=== PATIENT | female | born 1970 ===

== ENCOUNTER 2022-03-04 09:42 | Inpatient (IN) | payer MEDICARE ==
[2022-03-04] MEDS ORDERED: Magnesium 2 GM/50 ML BAG (IN WATER) ONE (09:45)
[2022-03-04] MEDS ORDERED: methylPREDNISolone Sod Succ/PF 125 MG/2 ML VIAL ONE (09:45)
[2022-03-04] MEDS ORDERED: Albuterol Sulfate 2.5 mg/3 ml Neb ONE (09:48)
[2022-03-04] MEDS ORDERED: Albuterol Sulfate 2.5 mg/0.5 ml Neb ONE (09:48)
[2022-03-04] MEDS ORDERED: Iopamidol-370 76% 500 ML 1 ML ONE (10:02)
[2022-03-04 10:08] LABS: Actual Bicarbonate (HCO3v) 20 mEq/L (22-28); Analyzer IN Cardio ER; Base Excess -8.3 mEq/L (-2.0 to +3.0); Calcium, Ionized (venous) 1.06 mmol/L (1.16-1.32); Chloride (VBG) 99 mmol/L (98-106); Hemoglobin (Hb) 10.9 g/dL (11.7-16.0); Potassium (VBG) 4.11 mmol/L (3.70-5.30); Sodium 130.6 mmol/L (133-146)
[2022-03-04 10:09] LABS: pH (venous) 7.21 (7.32-7.43)
[2022-03-04] MEDS ORDERED: Cefepime 2 GM VIAL ONE (10:14)
[2022-03-04] MEDS ORDERED: Vancomycin 1 GM/200 ML BAG ONE (10:14)
[2022-03-04 10:22] LABS: ALT (SGPT) 31 U/L (8-55); AST (SGOT) 48 U/L (5-34); Albumin 2.9 g/dL (3.5-5.0); Alkaline Phosphatase 164 U/L (40-110); Anion Gap 25 mmol/L (10-20); BUN (Urea Nitrogen) 33 mg/dL (9.8-20.1); Bilirubin, Total 0.7 mg/dL (0.2-1.2); Calc. Creatinine Clearance 0 mL/min (70-130); Calcium 7.5 mg/dL (7.8-10.44); Carbon Dioxide 13 mmol/L (22-29); Chloride 100 mmol/L (98-107); Estimated GFR 69; Globulin 3.9 g/dL (2.4-3.5); Glucose 250 mg/dL (70-105); Potassium 4.6 mmol/L (3.5-5.1); Protein, Total 6.8 g/dL (6.0-8.3); Sodium 133 mmol/L (136-145)
[2022-03-04 11:04] LABS: Acetaminophen Less than 10.0 mcg/mL (10.0-30.0); Alcohol Less than 10 mg/dL (Less than 10); Lipase 14 U/L (8-78); Salicylate Less than 8.0 mg/dL (15.0-30.0)
[2022-03-04] MEDS ORDERED: Promethazine HCl 12.5 MG SUPP ONE (11:23)
[2022-03-04 11:27] LABS: Phosphorus 6.3 mg/dL (2.3-4.7)
[2022-03-04 11:29] LABS: Magnesium 3.5 mg/dL (1.6-2.6)
[2022-03-04 11:30] LABS: Hemoglobin 10.1 g/dL (12.0-16.0); Mean Corpuscular HGB CONC 32.6 g/dL (32.0-36.0); Mean Corpuscular Hemoglobin 30.3 pg (27.0-31.0); Mean Corpuscular Volume 92.9 fL (78.0-98.0); Mean Platelet Volume 9.1 fL (7.4-10.4); Platelet Count 83 thou/uL (130-400); RBC Distribution Width 13.8 % (11.5-14.5); Red Blood Cell (RBC) Count 3.33 mill/uL (4.20-5.40); White Blood Cell (WBC) Count 51.1 thou/uL (4.8-10.8)
[2022-03-04 11:31] LABS: INR-International Normal Ratio 1.4; PTT 29.3 sec (22.9-36.1); Prothrombin Time 17.1 sec (12.0-14.7)
[2022-03-04 11:33] LABS: Band 34 % (5-11); Lymphocytes 2 % (21-51); MDiff Complete? YES; Monocytes 2 % (0-10); Neutrophil 62 % (42-75); Platelet Morphology Comment Appears Decreased; Polychromasia SLIGHT = 2-3 cells (100X) (0-2/hpf)
[2022-03-04] MEDS ORDERED: diphenhydrAMINE 50 MG/ML VIAL ONE (11:34)
[2022-03-04] MEDS ORDERED: HYDROmorphone 0.5 MG/0.5 ML SYRINGE ONE (11:34)
[2022-03-04] MEDS ORDERED: Promethazine HCl 12.5 MG in Sodium Chloride 0.9% 50 ML IVPB SCH (12:30)
[2022-03-04 12:40] LABS: SARS-CoV-2 NAA Rapid Test Not Detected (NotDetected)
[2022-03-04] MEDS ORDERED: Acetaminophen 325 MG TAB PO PRN (13:27)
[2022-03-04] MEDS ORDERED: Bisacodyl 5 MG TAB PO PRN (13:27)
[2022-03-04] MEDS ORDERED: Ondansetron PF 4 MG/2 ML Vial IVP PRN (13:27)
[2022-03-04] MEDS ORDERED: Senokot S 8.6-50 MG TAB PO PRN (13:27)
[2022-03-04] MEDS ORDERED: Bisacodyl 10 MG SUPP PR PRN (13:27)
[2022-03-04] MEDS ORDERED: Lactated Ringer's 1,000 ML IV SCH (13:30)
[2022-03-04] MEDS ORDERED: Cefepime 2 GM in Sodium Chloride 0.9% 100 ML IVPB SCH (14:00)
[2022-03-04 14:33] LABS: Hemoglobin A1c 5.5 % (4.0-6.0)
[2022-03-04 14:51] LABS: Lactic Acid 4.3 mmol/L (0.5-2.2)
[2022-03-04] MEDS ORDERED: Vancomycin 1 GM in Premix Bag 1 BAG IVPB SCH (15:00)
[2022-03-04] MEDS ORDERED: Enoxaparin Sodium 30 MG/0.3 ML SYRINGE SC SCH (16:15)
[2022-03-04 16:16] LABS: Actual Bicarbonate (HCO3v) 18 mEq/L (22-28); Base Excess -10.1 mEq/L (-2.0 to +3.0); Calcium, Ionized (venous) 0.99 mmol/L (1.16-1.32); Chloride (VBG) 104 mmol/L (98-106); Hemoglobin (Hb) 11.9 g/dL (11.7-16.0); Potassium (VBG) 4.86 mmol/L (3.70-5.30); Sodium 135.7 mmol/L (133-146)
[2022-03-04 16:20] LABS: pH (venous) 7.19 (7.32-7.43)
[2022-03-04] MEDS: Promethazine HCl 12.5 MG in Sodium Chloride 0.9% 50 ML IVPB PRN ×2 (16:33→22:24)
[2022-03-04] MEDS ORDERED: Sodium Bicarbonate 150 MEQ in Dextrose 5% in Water 1,000 ML IV SCH (17:15)
[2022-03-04] MEDS: METHadone HCl 10 MG TAB PO SCH (18:00)
[2022-03-04] MEDS ORDERED: NOREPINEPHRINE 8 MG/250 ML-D5W 250 ML IVPB SCH (18:45)
[2022-03-04] MEDS: Enoxaparin Sodium 30 MG/0.3 ML SYRINGE SC SCH (19:16)
[2022-03-04] MEDS ORDERED: Pantoprazole 40 MG VIAL IVP SCH (21:00)
[2022-03-04] MEDS ORDERED: Famotidine/PF 20 mg/2ml Vial SLOW IVP SCH (21:00)
[2022-03-04] MEDS: Cefepime 1 GM in Sodium Chloride 0.9% 100 ML IVPB SCH (22:24)
[2022-03-05] MEDS: METHadone HCl 10 MG TAB PO SCH ×2 (00:43→09:12)
[2022-03-05] MEDS: Promethazine HCl 12.5 MG in Sodium Chloride 0.9% 50 ML IVPB PRN ×3 (06:26→18:36)
[2022-03-05 06:43] LABS: Actual Bicarbonate (HCO3v) 27 mEq/L (22-28); Base Excess 3.7 mEq/L (-2.0 to +3.0); Calcium, Ionized (venous) 0.99 mmol/L (1.16-1.32); Chloride (VBG) 101 mmol/L (98-106); Hemoglobin (Hb) 10.8 g/dL (11.7-16.0); Potassium (VBG) 4.57 mmol/L (3.70-5.30); Sodium 135.4 mmol/L (133-146)
[2022-03-05 06:52] LABS: Reticulocyte Count 2.3 % (0.5-1.5)
[2022-03-05 06:59] LABS: Hemoglobin 9.8 g/dL (12.0-16.0); Mean Corpuscular HGB CONC 31.8 g/dL (32.0-36.0); Mean Corpuscular Hemoglobin 29.3 pg (27.0-31.0); Mean Corpuscular Volume 92.3 fL (78.0-98.0); Platelet Count 154 thou/uL (130-400); RBC Distribution Width 13.7 % (11.5-14.5); Red Blood Cell (RBC) Count 3.33 mill/uL (4.20-5.40); White Blood Cell (WBC) Count 40.8 thou/uL (4.8-10.8)
[2022-03-05 07:07] LABS: Legionella Urinary Ag Negative (Negative); Strep pneumo Urine Ag NEGATIVE (NEGATIVE)
[2022-03-05 07:10] LABS: Iron 69 ug/dL (50-170); Iron Binding Capacity, Total 235 mcg/dL (265-497)
[2022-03-05 07:15] LABS: ALT (SGPT) 45 U/L (8-55); AST (SGOT) 42 U/L (5-34); Albumin 2.8 g/dL (3.5-5.0); Alkaline Phosphatase 178 U/L (40-110); Anion Gap 15 mmol/L (10-20); BUN (Urea Nitrogen) 30 mg/dL (9.8-20.1); Bilirubin, Direct 0.4 mg/dL (0.1-0.3); Bilirubin, Total 0.7 mg/dL (0.2-1.2); Calc. Creatinine Clearance 47 mL/min (70-130); Calcium 8.4 mg/dL (7.8-10.44); Carbon Dioxide 26 mmol/L (22-29); Chloride 100 mmol/L (98-107); Cholesterol 95 mg/dl (< 200 Desired); Estimated GFR 95; Glucose 161 mg/dL (70-105); HDL Cholesterol Less than 8 mg/dL (>60 Neg Risk); Iron 69 ug/dL (50-170); Iron Binding Capacity, Total 235 mcg/dL (265-497); Magnesium 2.4 mg/dL (1.6-2.6); Potassium 4.6 mmol/L (3.5-5.1); Protein, Total 6.6 g/dL (6.0-8.3); Sodium 136 mmol/L (136-145); Triglycerides 155 mg/dL (Less than 150)
[2022-03-05 07:17] LABS: Band 28 % (5-11); Hypochromia SLIGHT = 6-15 cells (100X) (0-5/hpf); Large Platelets SLIGHT; Lymphocytes 4 % (21-51); MDiff Complete? YES; Metamyelocyte 1 % (0-0); Monocytes 3 % (0-10); Myelocyte 1 % (0-0); Neutrophil 63 % (42-75); Platelet Morphology Comment Appears Adequate; Polychromasia SLIGHT = 2-3 cells (100X) (0-2/hpf); Target Cells SLIGHT = 2-5 cells (100X) (0-1/hpf); Tear Drops SLIGHT = 2-5 cells (100X) (0-1/hpf)
[2022-03-05 07:25] LABS: Cardiac Risk 11.8 (Less than 4.5); LDL Cholesterol, Calculated 57 mg/dL
[2022-03-05] MEDS ORDERED: Prevnar 13-Val Conj/PF 0.5 ML SYRINGE IM ONE (09:00)
[2022-03-05] MEDS: Pantoprazole 40 MG VIAL IVP SCH (09:13)
[2022-03-05] MEDS: Enoxaparin Sodium 30 MG/0.3 ML SYRINGE SC SCH ×2 (09:13→20:39)
[2022-03-05] MEDS: Cefepime 1 GM in Sodium Chloride 0.9% 100 ML IVPB SCH ×2 (09:13→20:39)
[2022-03-05 09:30] LABS: Lactic Acid 2.8 mmol/L (0.5-2.2)
[2022-03-05] MEDS ORDERED: Fentanyl 100 MCG/2 ML VIAL SLOW IVP PRN (10:11)
[2022-03-05] MEDS ORDERED: HYDROmorphone 0.5 MG/0.5 ML SYRINGE SLOW IVP PRN (10:24)
[2022-03-05] MEDS: Vancomycin HCl 500 MG in Sodium Chloride 0.9% 100 ML IVPB SCH (11:42)
[2022-03-05] MEDS ORDERED: HYDROmorphone 2 MG/ML VIAL SLOW IVP PRN (12:11)
[2022-03-05] MEDS ORDERED: METHadone HCl 10 MG TAB PO SCH (14:00)
[2022-03-05 16:26] VITALS: BMI 12.9
[2022-03-05] MEDS: HYDROmorphone 2 MG TAB PO PRN (18:27)
[2022-03-06] MEDS: HYDROmorphone 2 MG TAB PO PRN ×6 (00:12→20:55)
[2022-03-06] MEDS: Promethazine HCl 12.5 MG in Sodium Chloride 0.9% 50 ML IVPB PRN ×4 (00:17→21:32)
[2022-03-06 05:47] LABS: Phosphorus 3.5 mg/dL (2.3-4.7)
[2022-03-06 05:52] LABS: Anion Gap 15 mmol/L (10-20); BUN (Urea Nitrogen) 33 mg/dL (9.8-20.1); Calc. Creatinine Clearance 45 mL/min (70-130); Calcium 8.5 mg/dL (7.8-10.44); Carbon Dioxide 26 mmol/L (22-29); Chloride 102 mmol/L (98-107); Estimated GFR 91; Glucose 85 mg/dL (70-105); Magnesium 2.2 mg/dL (1.6-2.6); Potassium 4.5 mmol/L (3.5-5.1); Sodium 138 mmol/L (136-145)
[2022-03-06 05:57] LABS: Band 9 % (5-11); Eosinophils 1 % (0-10); Hemoglobin 9.3 g/dL (12.0-16.0); Lymphocytes 10 % (21-51); MDiff Complete? YES; Mean Corpuscular HGB CONC 32.2 g/dL (32.0-36.0); Mean Corpuscular Hemoglobin 29.4 pg (27.0-31.0); Mean Corpuscular Volume 91.2 fL (78.0-98.0); Mean Platelet Volume 10.8 fL (7.4-10.4); Monocytes 3 % (0-10); Myelocyte 1 % (0-0); Neutrophil 76 % (42-75); Platelet Count 175 thou/uL (130-400); RBC Distribution Width 13.7 % (11.5-14.5); Red Blood Cell (RBC) Count 3.18 mill/uL (4.20-5.40); White Blood Cell (WBC) Count 31.3 thou/uL (4.8-10.8)
[2022-03-06] MEDS: Pantoprazole 40 MG VIAL IVP SCH (08:53)
[2022-03-06] MEDS: Enoxaparin Sodium 30 MG/0.3 ML SYRINGE SC SCH ×2 (08:53→21:32)
[2022-03-06] MEDS: Cefepime 1 GM in Sodium Chloride 0.9% 100 ML IVPB SCH ×2 (11:19→22:27)
[2022-03-06] MEDS: Vancomycin HCl 500 MG in Sodium Chloride 0.9% 100 ML IVPB SCH ×2 (11:58→23:08)
[2022-03-06] MEDS ORDERED: Loratadine 10 MG TAB PO SCH (13:15)
[2022-03-06] MEDS ORDERED: Fat Emulsion 250 ML, Sodium Acetate 2 mEq/ml 40 MEQ, Sodium Chloride 30 MEQ, Potassium ... IV SCH (14:00)
[2022-03-07] MEDS: HYDROmorphone 2 MG TAB PO PRN ×4 (04:16→18:16)
[2022-03-07] MEDS: Cefepime 1 GM in Sodium Chloride 0.9% 100 ML IVPB SCH ×2 (09:08→20:08)
[2022-03-07] MEDS: Enoxaparin Sodium 30 MG/0.3 ML SYRINGE SC SCH (09:09)
[2022-03-07] MEDS: Loratadine 10 MG TAB PO SCH (09:09)
[2022-03-07] MEDS: Pantoprazole 40 MG VIAL IVP SCH (09:11)
[2022-03-07] MEDS: Promethazine HCl 12.5 MG in Sodium Chloride 0.9% 50 ML IVPB PRN ×2 (11:23→20:07)
[2022-03-07] MEDS ORDERED: LOVENOX IVPB PRN (11:31)
[2022-03-07] MEDS: Vancomycin HCl 500 MG in Sodium Chloride 0.9% 100 ML IVPB SCH (11:59)
[2022-03-07] MEDS ORDERED: Sodium Acetate 2 mEq/ml 40 MEQ, Sodium Chloride 30 MEQ, Potassium Chloride 20 MEQ, Pota... IV SCH (14:00)
[2022-03-07 17:16] LABS: #Basophils 0.1 thou/uL (0.0-0.2); #Eosinphils 0.2 thou/uL (0.0-0.7); #Lymphocytes 1.7 thou/uL (1.20-3.40); #Monocytes 1.3 thou/uL (0.11-0.59); #Neutrophils 17.6 thou/uL (1.40-6.50); %Basophils 0.5 % (0.0-1.0); %Eosinophils 0.9 % (0.0-10.0); %Monocytes 6.4 % (0.0-10.0); %Neutrophils 84.3 % (42.0-75.0); Hemoglobin 6.8 g/dL (12.0-16.0); Mean Corpuscular HGB CONC 31.8 g/dL (32.0-36.0); Mean Corpuscular Hemoglobin 29.5 pg (27.0-31.0); Mean Corpuscular Volume 92.9 fL (78.0-98.0); Mean Platelet Volume 9.9 fL (7.4-10.4); Platelet Count 208 thou/uL (130-400); RBC Distribution Width 13.5 % (11.5-14.5); White Blood Cell (WBC) Count 20.9 thou/uL (4.8-10.8)
[2022-03-07 17:35] LABS: Anion Gap 14 mmol/L (10-20); BUN (Urea Nitrogen) 18 mg/dL (9.8-20.1); Calc. Creatinine Clearance 53 mL/min (70-130); Calcium 7.9 mg/dL (7.8-10.44); Carbon Dioxide 21 mmol/L (22-29); Chloride 107 mmol/L (98-107); Estimated GFR 105; Glucose 116 mg/dL (70-105); Magnesium 1.8 mg/dL (1.6-2.6); Potassium 4.7 mmol/L (3.5-5.1); Sodium 137 mmol/L (136-145)
[2022-03-07 17:51] LABS: Phosphorus 2.3 mg/dL (2.3-4.7)
[2022-03-07] MEDS: Enoxaparin Sodium 40 MG/0.4 ML SYRINGE SC SCH (20:08)
[2022-03-07 20:53] LABS: Actual Bicarbonate (HCO3v) 24 mEq/L (22-28); Calcium, Ionized (venous) 1.07 mmol/L (1.16-1.32); Chloride (VBG) 107 mmol/L (98-106); Hemoglobin (Hb) 7.8 g/dL (11.7-16.0); Potassium (VBG) 4.59 mmol/L (3.70-5.30); Sodium 135.9 mmol/L (133-146); pH (venous) 7.45 (7.32-7.43)
[2022-03-07] MEDS ORDERED: guaiFENesin ER 600 MG TAB PO SCH (21:17)
[2022-03-07] MEDS ORDERED: Levalbuterol HCl 0.63 MG/3 ML NEB NEB PRN (21:18)
[2022-03-08] MEDS: Vancomycin HCl 500 MG in Sodium Chloride 0.9% 100 ML IVPB SCH ×2 (00:04→12:39)
[2022-03-08] MEDS: Promethazine HCl 12.5 MG in Sodium Chloride 0.9% 50 ML IVPB PRN ×3 (03:26→20:19)
[2022-03-08] MEDS: HYDROmorphone 2 MG TAB PO PRN ×4 (03:30→22:23)
[2022-03-08 05:41] LABS: #Eosinphils 0.2 thou/uL (0.0-0.7); #Lymphocytes 1.8 thou/uL (1.20-3.40); #Monocytes 1.2 thou/uL (0.11-0.59); %Basophils 0.2 % (0.0-1.0); %Lymphocytes 10.7 % (21.0-51.0); %Monocytes 6.8 % (0.0-10.0); %Neutrophils 81.3 % (42.0-75.0); Hemoglobin 6.7 g/dL (12.0-16.0); Mean Corpuscular HGB CONC 32.3 g/dL (32.0-36.0); Mean Corpuscular Hemoglobin 30.1 pg (27.0-31.0); Mean Corpuscular Volume 93.3 fL (78.0-98.0); Mean Platelet Volume 9.6 fL (7.4-10.4); Platelet Count 200 thou/uL (130-400); RBC Distribution Width 13.6 % (11.5-14.5); Red Blood Cell (RBC) Count 2.22 mill/uL (4.20-5.40); White Blood Cell (WBC) Count 17.2 thou/uL (4.8-10.8)
[2022-03-08 06:01] LABS: Phosphorus 2.6 mg/dL (2.3-4.7)
[2022-03-08 06:04] LABS: Anion Gap 9 mmol/L (10-20); BUN (Urea Nitrogen) 18 mg/dL (9.8-20.1); Calc. Creatinine Clearance 52 mL/min (70-130); Calcium 7.7 mg/dL (7.8-10.44); Carbon Dioxide 24 mmol/L (22-29); Chloride 108 mmol/L (98-107); Estimated GFR 105; Glucose 115 mg/dL (70-105); Magnesium 1.8 mg/dL (1.6-2.6); Potassium 4.5 mmol/L (3.5-5.1); Sodium 136 mmol/L (136-145)
[2022-03-08] MEDS: Cefepime 1 GM in Sodium Chloride 0.9% 100 ML IVPB SCH ×2 (09:47→20:16)
[2022-03-08] MEDS: Enoxaparin Sodium 40 MG/0.4 ML SYRINGE SC SCH ×2 (09:48→20:16)
[2022-03-08] MEDS: Pantoprazole 40 MG VIAL IVP SCH (09:48)
[2022-03-08] MEDS: guaiFENesin ER 600 MG TAB PO SCH ×2 (09:48→20:16)
[2022-03-08] MEDS: Loratadine 10 MG TAB PO SCH ×2 (09:49→11:23)
[2022-03-08] MEDS: Micafungin 100 MG in Sodium Chloride 0.9% 100 ML IVPB SCH (12:39)
[2022-03-08] MEDS: Fat Emulsion 250 ML, Sodium Acetate 2 mEq/ml 40 MEQ, Sodium Chloride 30 MEQ, Potassium ... IV SCH (15:28)
[2022-03-08] MEDS: Vancomycin HCl 750 MG in Sodium Chloride 0.9% 250 ML 250 ML IVPB SCH (22:24)
[2022-03-09] MEDS: Promethazine HCl 12.5 MG in Sodium Chloride 0.9% 50 ML IVPB PRN ×3 (02:20→22:38)
[2022-03-09] MEDS ORDERED: Furosemide 40 MG/4 ML VIAL ONE (03:04)
[2022-03-09] MEDS ORDERED: Furosemide 40 MG/4 ML VIAL SLOW IVP SCH (03:15)
[2022-03-09 04:07] LABS: #Basophils 0.1 thou/uL (0.0-0.2); #Eosinphils 0.2 thou/uL (0.0-0.7); #Lymphocytes 1.2 thou/uL (1.20-3.40); #Neutrophils 16.4 thou/uL (1.40-6.50); %Basophils 0.3 % (0.0-1.0); %Eosinophils 0.9 % (0.0-10.0); %Lymphocytes 6.5 % (21.0-51.0); %Monocytes 5.4 % (0.0-10.0); Hemoglobin 9.2 g/dL (12.0-16.0); Mean Corpuscular HGB CONC 33.2 g/dL (32.0-36.0); Mean Corpuscular Hemoglobin 31.2 pg (27.0-31.0); Mean Platelet Volume 9.8 fL (7.4-10.4); Platelet Count 270 thou/uL (130-400); RBC Distribution Width 13.7 % (11.5-14.5); Red Blood Cell (RBC) Count 2.94 mill/uL (4.20-5.40); White Blood Cell (WBC) Count 18.8 thou/uL (4.8-10.8)
[2022-03-09 04:30] LABS: Phosphorus 2.6 mg/dL (2.3-4.7)
[2022-03-09] MEDS: HYDROmorphone 2 MG TAB PO PRN ×4 (04:30→21:34)
[2022-03-09 04:31] LABS: Anion Gap 13 mmol/L (10-20); BUN (Urea Nitrogen) 15 mg/dL (9.8-20.1); Calc. Creatinine Clearance 52 mL/min (70-130); Calcium 8.2 mg/dL (7.8-10.44); Carbon Dioxide 21 mmol/L (22-29); Chloride 107 mmol/L (98-107); Estimated GFR 105; Glucose 150 mg/dL (70-105); Magnesium 1.7 mg/dL (1.6-2.6); Potassium 4.2 mmol/L (3.5-5.1); Sodium 137 mmol/L (136-145)
[2022-03-09] MEDS: Enoxaparin Sodium 40 MG/0.4 ML SYRINGE SC SCH ×2 (08:36→21:36)
[2022-03-09] MEDS: Pantoprazole 40 MG VIAL IVP SCH (08:37)
[2022-03-09] MEDS: Loratadine 10 MG TAB PO SCH (08:37)
[2022-03-09] MEDS: guaiFENesin ER 600 MG TAB PO SCH ×2 (08:37→21:45)
[2022-03-09] MEDS: Cefepime 1 GM in Sodium Chloride 0.9% 100 ML IVPB SCH ×2 (10:00→21:35)
[2022-03-09] MEDS: Vancomycin HCl 750 MG in Sodium Chloride 0.9% 250 ML 250 ML IVPB SCH ×2 (11:12→23:10)
[2022-03-09] MEDS: Micafungin 100 MG in Sodium Chloride 0.9% 100 ML IVPB SCH (12:17)
[2022-03-09] MEDS ORDERED: clonazePAM 0.5 MG TAB PO PRN (14:59)
[2022-03-09] MEDS: Fat Emulsion 250 ML, Sodium Acetate 2 mEq/ml 40 MEQ, Sodium Chloride 30 MEQ, Potassium ... IV SCH (15:21)
[2022-03-09] MEDS: Morphine 2 MG/ML VIAL SLOW IVP PRN ×3 (18:07→23:05)
[2022-03-10] MEDS: Morphine 2 MG/ML VIAL SLOW IVP PRN ×5 (00:18→05:34)
[2022-03-10] MEDS ORDERED: clonazePAM 0.5 MG TAB PO SCH (01:00)
[2022-03-10 05:31] VITALS: BP 128/76
[2022-03-10] MEDS ORDERED: Midazolam HCl 2 mg/2 ml Vial IVP PRN ×2 (06:35→12:07)
[2022-03-10 06:36] LABS: Band 12 % (5-11); Lymphocytes 2 % (21-51); MDiff Complete? YES; Mean Corpuscular HGB CONC 31.5 g/dL (32.0-36.0); Mean Corpuscular Hemoglobin 29.7 pg (27.0-31.0); Mean Corpuscular Volume 94.3 fL (78.0-98.0); Mean Platelet Volume 9.9 fL (7.4-10.4); Monocytes 4 % (0-10); Neutrophil 82 % (42-75); Platelet Count 318 thou/uL (130-400); RBC Distribution Width 14.2 % (11.5-14.5); Red Blood Cell (RBC) Count 3.02 mill/uL (4.20-5.40); White Blood Cell (WBC) Count 20.4 thou/uL (4.8-10.8)
[2022-03-10] MEDS ORDERED: Morphine 4 MG/ML VIAL SLOW IVP PRN ×2 (06:37→12:15)
[2022-03-10 07:34] LABS: Anion Gap 10 mmol/L (10-20); BUN (Urea Nitrogen) 19 mg/dL (9.8-20.1); Calc. Creatinine Clearance 54 mL/min (70-130); Calcium 8.3 mg/dL (7.8-10.44); Carbon Dioxide 23 mmol/L (22-29); Chloride 108 mmol/L (98-107); Estimated GFR 106; Glucose 148 mg/dL (70-105); Magnesium 1.9 mg/dL (1.6-2.6); Potassium 4.4 mmol/L (3.5-5.1); Sodium 137 mmol/L (136-145)
[2022-03-10 08:06] VITALS: TEMP 99.3
[2022-03-10] MEDS: Morphine 4 MG/ML VIAL SLOW IVP PRN ×6 (08:47→09:52)
[2022-03-10] MEDS: Midazolam HCl 2 mg/2 ml Vial IVP PRN ×2 (09:13→09:35)
[2022-03-12] MEDS ORDERED: Fat Emulsion 250 ML, Sodium Acetate 2 mEq/ml 40 MEQ, Sodium Chloride 30 MEQ, Potassium ... IV SCH (14:00)
== END 2022-03-10 13:37 | disposition expired | DRG 871 ==
LOC: ERS 09:42 → SUATTDRO 09:42 → CCU 13:27 → MSONC 03-05 14:40 → IMCU/EMU 03-10 05:17
PROVIDERS: ADMIT Family Medicine; ATTEND Family Medicine
PROC: 5A09357 Assistance with Respiratory Ventilation, Less than 24 Consecutive Hours, Continuous Positive Airway Pressure (ICD-10-PCS; 2022-03-04)
PROC: 3E03329 Introduction of Other Anti-infective into Peripheral Vein, Percutaneous Approach (ICD-10-PCS; 2022-03-04)
PROC: 30233N1 Transfusion of Nonautologous Red Blood Cells into Peripheral Vein, Percutaneous Approach (ICD-10-PCS; principal; 2022-03-08)
DX: A41.89 Other specified sepsis (principal); E43 Unspecified severe protein-calorie malnutrition; I26.90 Septic pulmonary embolism without acute cor pulmonale; G93.41 Metabolic encephalopathy; J18.9 Pneumonia, unspecified organism; J96.01 Acute respiratory failure with hypoxia; R65.21 Severe sepsis with septic shock; C78.7 Secondary malignant neoplasm of liver and intrahepatic bile duct; C25.9 Malignant neoplasm of pancreas, unspecified; C7A.8 Other malignant neuroendocrine tumors; Z68.1 Body mass index [BMI] 19.9 or less, adult; Z51.5 Encounter for palliative care; Z66 Do not resuscitate; R00.0 Tachycardia, unspecified; D72.829 Elevated white blood cell count, unspecified; D69.6 Thrombocytopenia, unspecified; R73.9 Hyperglycemia, unspecified; E83.51 Hypocalcemia; D50.9 Iron deficiency anemia, unspecified; I50.9 Heart failure, unspecified; I95.9 Hypotension, unspecified; I51.3 Intracardiac thrombosis, not elsewhere classified; R53.81 Other malaise; Z20.822 Contact with and (suspected) exposure to COVID-19; R62.7 Adult failure to thrive; Z87.891 Personal history of nicotine dependence; Z91.040 Latex allergy status; Z88.8 Allergy status to other drugs, medicaments and biological substances; Z98.890 Other specified postprocedural states; Z88.1 Allergy status to other antibiotic agents; Z88.6 Allergy status to analgesic agent; Z88.2 Allergy status to sulfonamides; Z79.899 Other long term (current) drug therapy
CPT/HCPCS: 36415; 36416; 36430; 71045; 71275; 74177; 80048; 80053; 80061; 80076; 80202; 80307; 82010; 82140; 82728; 82805; 83036; 83540; 83550; 83605; 83690; 83735; 83880; 84100; 84145; 84443; 84484; 85025; 85046; 85060; 85520; 85610; 85730; 86850; 86900; 86901; 87040; 87077; 87149; 87186; 87449; 87899; 93005; 93010; 93306; 93970; 94640; 94644; 94660; 94760; 96365; 96367; 96374; 96375; A4217; C9113; J0610; J0692; J1170; J1200; J1642; J1650; J1940; J2248; J2250; J2270; J2550; J2930; J3370; J3475; J3480; J3490; J7050; J7070; J7120; J7611; J7614; P9016; Q9967; U0002